=== PATIENT | male | born 1970 | race Caucasian/White ===

== ENCOUNTER 2021-08-27 08:05 | Outpatient (CLI) | payer OTHER, SELFPAY ==
--- NOTE | 2021-08-28 13:56 | WPDHOMESLEEP ---
Sleep Study - Home Unattended Date of Study: 08/27/21 Ordering Provider: Alex Fernando MD Interpreting Provider: Reta Thompson, DO Home Sleep Study Type: Apnea Link Air Height: 1.73 m Weight: 92.986 kg Body Mass Index: 31.1 Neck Circumference (inches): 16.5 [place]: 7 Reason for Sleep Study Previously diagnosed AL. Not on CPAP. Sleep History The patient is a 50-year-old male with hypertension, hyperlipidemia, carotid artery disease with angioplasty and stent, allergic rhinitis and previously diagnosed sleep apnea that had a home sleep test ordered by his primary care physician. The patient occasionally awakens from sleep short of breath. He frequently awakens at night with heartburn, belching or cough. He constantly snores loud enough that others complain. He occasionally has trouble sleeping when he has a cold. He rarely wakes up gasping for air throughout the night. He frequently has breathing problems at night observed by himself or others. He rarely sweats excessively at night. He rarely notices heart palpitations or irregular heartbeats during the night. He occasionally falls asleep during the day but never while driving. He rarely has trouble at work due to sleepiness. He denies sleep paralysis and cataplexy. He rarely experiences vivid dreamlike scenes upon awakening or falling asleep. He rarely has nightmares. He frequently has thoughts racing through his mind. He denies feeling sad or depressed. He rarely has anxiety. He denies having muscular tension. He denies noticing parts of his body jerk. He rarely kicks during the night. He denies having crawling and aching feelings in his legs as well as leg pain during the night. He frequently grants teeth during sleep but never awakens with morning jaw pain. He rarely is bothered by pain during the day and rarely awakened by pain during the night. He rarely wakes up feeling stiff in the morning with sore achy muscles. He rarely wakes up with pain in the neck, spine or other joints. He goes to bed at midnight on both weekdays and weekends. It takes him 30-60 minutes to fall asleep. He wakes up twice throughout the night to urinate. He is able to fall back asleep within 5 minutes. He wakes up at 6:30 a.m. on weekdays and 7:00 a.m. on the weekends. He typically gets 6 hours of sleep per night. He will stay in bed for 10 minutes after waking up in the morning. He currently lives with his and 2 children. He does not consume any caffeinated beverages within 2 hours of bedtime. He does not engage in physical exercise before bedtime. He will watch television before falling asleep. He does not take naps in the afternoon or the evening. He drinks 2 caffeinated beverages per day. He drinks 2 alcoholic beverages per day. He quit smoking cigarettes 12 years ago. He denies recreational drug use. [facility] Past Medical History Medical History (Updated 08/28/21 @ 14:11 by Reta Thompson DO) CAD (coronary artery disease), [place] coronary artery HLD (hyperlipidemia) HTN (hypertension) Seasonal allergies Surgical History Surgical History (Updated 08/28/21 @ 14:06 by Reta Thompson DO) Hx of coronary angioplasty Hx of heart artery stent Medications Home Medications Medication Instructions Recorded Confirmed Type atorvastatin 40 mg PO HS 08/28/21 08/28/21 History ezetimibe 10 mg PO DAILY 08/28/21 08/28/21 History lisinopril 20 mg PO DAILY 08/28/21 08/28/21 History metoprolol succinate 25 mg PO DAILY 08/28/21 08/28/21 History montelukast mg 08/28/21 History Sleep Procedure This test was performed using 4 channel monitoring including respiratory effort channel, snoring channel, heart rate channel, and oxygen saturation channel. This study was scored using [facility] guidelines. Sleep Architecture The patient had a total recording time of 8 hours 10 minutes and total monitoring time of 7 hours 57 minutes. The patient spent 2 hours 14 minutes, 28.
[2021-08-28 14:12] VITALS: BMI 31.1
== END 2021-08-28 10:48 | disposition home or self-care (01) ==
LOC: ANHCSM 08:05
PROVIDERS: PCP Family Medicine; Visit Provider Family Medicine
DX: G47.33 Obstructive sleep apnea (adult) (pediatric) (principal)
CPT/HCPCS: 95806